=== PATIENT | male | born 1955 | race Caucasian/White ===

== ENCOUNTER 2022-02-16 06:46 | Outpatient (CLI) | payer OTHER ==
[~2022-02-16] VITALS: Ht 170.2 cm; Wt 115.7 kg
[2022-02-16] MEDS ORDERED: ASPI-999 PO (17:08)
[2022-02-16] MEDS ORDERED: OLME20TA24 PO (17:08)
[2022-02-16] MEDS ORDERED: MULT-1056 PO (17:08)
[2022-02-16] MEDS ORDERED: UBID100C44 PO (17:08)
[2022-02-16] MEDS ORDERED: SIMV40TA25 PO (17:08)
[2022-02-16] MEDS ORDERED: ZINC30CA PO (17:11)
[2022-02-16] MEDS ORDERED: CHOL400C9 PO (17:11)
[2022-02-16] MEDS ORDERED: ASCO-262 PO (17:11)
== END 2022-02-16 18:15 | disposition home or self-care (01) ==
LOC: PREOP 06:46
PROVIDERS: ATTEND Surgery
DX: Z01.818 Encounter for other preprocedural examination (principal)

== ENCOUNTER 2022-02-27 07:50 | Day surgery (SDC) | payer MEDICARE, OTHER ==
[~2022-02-27] VITALS: Wt 115.7 kg
[~2022-02-27 07:50] MED LIST: ASCO-262 PO; ASPI-999 PO; CHOL400C9 PO; MULT-1056 PO; OLME20TA24 PO; SIMV40TA25 PO; UBID100C44 PO; ZINC30CA PO
[2022-02-27] MEDS ORDERED: LACTATED RINGERS 1,000 ML IV STA (08:06)
[2022-02-27 08:21] VITALS: BP 118/67
--- NOTE | 2022-02-27 08:21 | Progress Note-Pre Operative ---
Pre-Operative Progress Note H&P Reviewed The H&P was reviewed, patient examined and no changes noted. Time Seen by Provider: 08:17 Date H&P Reviewed: February 27, 2022 Time H&P Reviewed: 08:17 Pre-Operative Diagnosis: Screening JENN MOLINA DO February 27, 2022 08:21
[2022-02-27] MEDS ORDERED: MIDAZOLAM 2 MG/2 ML (VERSED) VIAL ONE (08:46)
[2022-02-27] MEDS ORDERED: PROPOFOL INJECTION 50 ML IV ONE (08:46)
[2022-02-27 09:15] VITALS: BP 94/57
[2022-02-27 09:20] VITALS: BP 90/59
[2022-02-27 09:25] VITALS: BP 87/57
--- NOTE | 2022-02-27 09:27 | Progress Note-Post Operative ---
Post-Operative Progess Note Surgeon (s)/Warehouse Receiving Clerk (s) Surgeon JENN MOLINA DO Warehouse Receiving Clerk: done Pre-Operative Diagnosis Screening Post-Operative Diagnosis Polyps Diverticula Int Hemorrhoids Procedure & Operative Findings Date of Procedure 02/27/22 Procedure Performed/Findings colonoscopy with snare polypectomy PROCEDURE NOTE: After informed consent was obtained, the patient was brought to the endoscopy suite, placed in bed in left lateral decubitus position. He was administered IV sedation by the TALENT ACQUISITION ADMINISTRATOR who then monitored his vitals the entire time, heart rate, blood pressure and pulse ox and the scope was inserted. Pushed all the way to about 150 cm and pushed into the cecum, took a picture of appendiceal orifice and noted the ileo-cecal valve. I also found a polyp in the cecum, removed in 2 pieces with the snare. Then slowly withdrew the scope insufflating to look circumferentially at the valencia starting in the cecum, up the ascending colon to the hepatic flexure, then down the transverse colon to the splenic flexure and into the descending colon. Here I found 3 polyps, also removed with the snare. Pt also had diverticula through here and had taken pictures of them on the way in. Continued down into the sigmoid where I found another polyp and also removed it with snare polypectomy. Finally into the rectal vault and retroflexed the scope. Took a picture of the internal hemorrhoids. The patient tolerated the procedure. He was recovered in endoscopy suite. Recommended for repeat colonoscopy in 3 years. Anesthesia Type IV sedation by TALENT ACQUISITION ADMINISTRATOR Estimated Blood Loss Estimated blood loss (mL): scant Specimens/Packing Specimens Removed cecal polyp desc colon polyp x 3 sigmoid polyp JENN MOLINA DO February 27, 2022 09:27
--- NOTE | 2022-02-27 09:29 | Endoscopy Discharge Instruct ---
Endo Procedure/Findings Findings 1.: Polyp 2.: Diverticulosis 3.: Internal Hemorrhoids Discharge Instructions - Activity: You might feel a little sleepy until tomorrow. This is due to the medicine you received to relax you. Until tomorrow, you should: NOT drive a car, operate machinery or power tools. NOT drink any alcoholic beverages. NOT make any important decisions or sign importortant papers. Do not return to work until tomorrow, unless otherwise instructed. Resume previous activities tomorrow. Diet: Start by taking liquids. If you tolerate liquids, advance to solid food. 1.: Colonscopy in 3 years Notify Physician - If you experience excessive bleeding, unusual abdominal pain, fever, or chest pain, contact your doctor immediately. JENN MOLINA DO February 27, 2022 09:29
[2022-02-27 09:30] VITALS: BP 87/57
[2022-02-27 09:45] VITALS: BP 105/72
--- NOTE | 2022-02-27 13:10 | Anesthesia-General Post-Op ---
MAC Patient Condition Mental Status/LOC: Same as Preop Cardiovascular: Satisfactory Nausea/Vomiting: Absent Respiratory: Satisfactory Pain: Controlled Complications: Absent Post Op Complications Complications None Follow Up Care/Instructions Patient Instructions None needed. Anesthesiology Discharge Order Discharge Order Patient is doing well, no complaints, stable vital signs, no apparent adverse anesthesia problems. No complications reported per nursing. EUSEBIO KAUR CRNA February 27, 2022 13:10
== END 2022-02-27 10:09 | disposition home or self-care (01) ==
LOC: ENDO 07:50
PROVIDERS: ATTEND Surgery
DX: Z12.11 Encounter for screening for malignant neoplasm of colon (principal); D12.0 Benign neoplasm of cecum; D12.4 Benign neoplasm of descending colon; D12.5 Benign neoplasm of sigmoid colon; K57.30 Diverticulosis of large intestine without perforation or abscess without bleeding; K64.8 Other hemorrhoids; Z80.0 Family history of malignant neoplasm of digestive organs; Z79.82 Long term (current) use of aspirin; E66.9 Obesity, unspecified; Z68.41 Body mass index [BMI] 40.0-44.9, adult
CPT/HCPCS: 88305